=== PATIENT | male | born 1965 | race Caucasian/White ===

== ENCOUNTER → 2023-06-22 08:22 | Outpatient (REF) | payer OTHER, SELFPAY | LOC: RAD 08:22 | PROVIDERS: ATTENDING PHYSICIAN Nurse Practitioner | DX: R13.19 Other dysphagia (principal) | CPT/HCPCS: 74230; 92611 ==

== ENCOUNTER → 2023-07-08 07:15 | Outpatient (REF) | payer OTHER, SELFPAY | LOC: MRI 07:15 | PROVIDERS: ATTENDING PHYSICIAN Specialist; FAMILY PHYSICIAN Family Medicine; REFERRING PHYSICIAN Radiology Diagnostic Radiology | DX: R41.840 Attention and concentration deficit (principal) | CPT/HCPCS: 70030; 70551 ==

== ENCOUNTER 2024-01-17 02:59 | Emergency (ER) | payer OTHER, SELFPAY ==
[2024-01-17] VITALS (13 sets, daily range): BP systolic 134–178; BP diastolic 101–130
--- NOTE | 2024-01-17 03:49 | ED.GENMED ---
History of Present Illness
General
Chief Complaint: Blood Pressure Problem
Source: patient
Exam Limitations: none
Time Seen by Provider: 01/17/24 03:15
Nursing documentation reviewed up to this point in time: agreed with
History of Present Illness
History of Present Illness:
This is a 58-year-old gentleman who has longstanding history of 'borderline hypertension' and states his blood pressure generally runs in the 130s occasionally 140s. He attempts to control his blood pressure with diet and exercise.
He also has history of hyperlipidemia, prediabetes as well as history of ADHD and has been trialed on several different 'non-amphetamine' ADHD medications thus far without improvement in his inattention issues.
A month ago he was started on Qelbree, no improvement in attention deficit issues but he has had elevated blood pressure readings. 2 weeks ago while at the [facility] in anticipation to give blood he was turned away due to elevated blood pressure of
148/110. He has been monitoring his blood pressure since then and has remained elevated despite self titrating his Qelbree down but has not discontinued Qelbree until today.
He awoke tonight with complaints of generalized headache primarily at the top of his head and took 2 Advil prior to arrival. No improvement in headache but now notes mild nausea. He denies chest pain, no shortness of breath, no dizziness nor
lightheadedness, no palpitations, no neck nor back pain. No vision difficulty. He denies nasal congestion, no sore throat. He did have COVID-19 URI earlier this month.
He did have a few hard seltzer drinks yesterday while he was out in the sun at [facility]. He denies significant nor frequent alcohol use.
Past History
Past History
ED Past Medical History: HTN, Hypercholesterolemia, NIDDM, Other (ADHD) and Other (Kidney stones)
ED Past Surgical History: Urological (Vasectomy)
Social History
Tobacco: Non-smoker
Alcohol: None
Drug: None
Personal:
Living: with family
Employment: Employed
Family History
Family History: Hypertension
Phy Exam
Physical Exam
Physical Exam:
GENERAL: 58-year-old gentleman appears his stated age, awake and alert, very minimally anxious but appropriate, easily communicative. is accompanying.
EYE: pupils equal and reactive. anicteric
NECK: Supple, nontender, no meningismus, no significant adenopathy.
ENT: posterior pharynx is clear, oral mucosa is moist. TM clear b/l, nares have mildly boggy pale blue turbinates.
CARDIAC: Regular rate and rhythm. no murmur.
LUNGS: Clear breath sounds bilaterally, no acute respiratory distress, no wheezes/rales/rhonchi
ABDOMEN: Soft, nondistended, without focal tenderness, no r/g, no cvat. normoactive BS.
NEUROLOGICAL: Alert and oriented x3, no focal neuro deficits. Gait is davis and steady.
SKIN: Warm and dry, normal color, skin intact. No rash.
MUSCULOSKELETAL: No C/C/E. peripheral pulses are full and equal b/l. No palpable tenderness.
PSYCH: Normal and appropriate interaction.
Course
Orders/Labs/Results
Orders:
Orders
01/17/24 03:40
CMP [Comprehensive Metabolic Panel] Urgent
Complete Blood Count/With Diff Urgent
01/17/24 03:48
Electrocardiogram (*1) Urgent
Reason for Study: Hypertension, Benign
CT Head W/o Iv Contrast Urgent
Comment:
Reason For Exam: acute headache, HTN
EKG- Treatment ONCE
01/17/24 03:49
Metoprolol [Lopressor] 5 mg IV NOW STA
01/17/24 05:00
Metoprolol [Lopressor] 5 mg .ROUTE .STK-MED ONE
01/17/24 05:01
Metoprolol [Lopressor] 5 mg IV NOW STA
01/17/24 05:02
0.9% Sodium Chloride 500 ml [Nss] 500 ml IV BOLUS
01/17/24 05:35
0.9% Sodium Chloride 500 ml [Nss] 500 ml IV BOLUS
Ketorolac [Toradol] 30 mg IV NOW STA
01/17/24 05:36
Ketorolac [Toradol] 30 mg .ROUTE .STK-MED ONE
01/17/24 05:39
0.9% Sodium Chloride 500 ml [Nss] 500 ml IV BOLUS
01/17/24 05:44
0.9% Sodium Chloride 500 ml [Nss] 500 ml IV BOLUS
Abnormal Lab Results
01/17/24
03:40
WBC 3.2 L 10^3/uL
(4.8-10.8)
RBC 4.20 L 10^6/uL
(4.70-6.10)
Hgb 12.6 L g/dL
(13.0-18.0)
Hct 35.5 L %
(39.0-52.0)
Plt Count 126 L 10^3/uL
(130-400)
MPV 11.1 H fL
(7.4-10.4)
Monocytes % 9.4 H %
(1.7-9.3)
BUN 24 H mg/dl
(9-20)
Glucose 125 H mg/dl
(70-99)
Total Protein 6.0 L g/dl
(6.3-8.2)
01/17/24 03:40
01/17/24 03:40
Vital Signs
Initial and Last Documented VS:
Initial Vital Signs
Temp Pulse Resp BP Pulse Ox
97.8 F 90 22 178/114 98
01/17/24 03:01 01/17/24 03:01 01/17/24 03:01 01/17/24 03:01 01/17/24 03:01
Last Documented Vital Signs
Temp Pulse Resp BP Pulse Ox
97.8 F 80 22 158/103 98
01/17/24 03:01 01/17/24 05:02 01/17/24 03:01 01/17/24 06:00 01/17/24 06:00
MDM/Problems Addressed
Differential Diagnosis Includes:
History of borderline hypertension presents with accelerated hypertension associated with headache.
Hypertension has been an ongoing issue at least over the past 2 weeks or more.
Concern for exacerbation of essential hypertension versus adverse medication reaction related to Qelbee versus intracranial hemorrhage.
Concern for end organ damage thus will check labs, will check CT of the head, EKG.
No associated symptoms with headache, no red flags in history nor exam. Headache not maximal in intensity at onset, no nuchal rigidity, no focal neuro-deficits, nothing to suggest subarachnoid hemorrhage.
Will give an IV dose of Lopressor for hypertension.
Chronic conditions affecting care: DM (Borderline diabetes), HTN and Psychiatric illness (ADD)
Acute Exacerbation and/or Progression of Chronic Illness: HTN
*Radiology
Radiology exam reviewed: radiology read reviewed
*Pulse Oximetry
Patient hypoxic: no
*EKG
Interpreted by ED Provider?: Yes
Interpretation: normal
Comparison EKG: no comparison EKG present
Rate: normal
Rhythm: sinus
[place]: normal axis
Interval: normal interval
QRS Pattern: normal QRS
Ischemia: no ischemia
*Pediatrician Managing Partner Interpretation
Rate: normal
Interpretation: normal
Rhythm: sinus
*Critical Care Note
Total Time (30-74mins, 75-104mins- exclusive of procedures): Not Applicable
Update Note
Update Note:
01/17/2024 0539 AM
Blood pressure improving.
CT of the head is unremarkable.
Labs reveal very mild pancytopenia, unremarkable chemistry save for minimally elevated BUN of 24.
Pancytopenia may be related to recent viral illness/recent COVID URI.
Patient reports moderate improvement in headache but not completely resolved. Continues to appear well.
Mild dehydration I suspect is related to alcohol consumption and exposure to outdoor el[place] weather yesterday while at a gathering at his neighbors. Will continue IV fluids and trial an IV dose of Toradol for headache and continue to observe.
He has been given an additional dose of metoprolol as well.
I do suspect the patient has hypertension and we discussed initiating an antihypertensive medication upon discharge versus prompt follow-up with PCP for recheck and discuss hypertension management with PCP.
He elects to follow-up with his PCP for BP recheck and to discuss medication. Recommend follow-up with PCP for recheck of mild pancytopenia as well.
Recommend he stay well-hydrated on a daily basis, avoid further alcoholic beverages.
Recommend he continue to monitor his blood pressure but only once per day, record results with prompt follow-up with PCP for recheck.
ED Attending Note
-
Portions of this chart may have been created with voice recognition software.� Occasional wrong word or��sound alike� substitutions may have occurred due to the inherent limitations of voice recognition software.
Discharge Plan
Departure
Patient Disposition: Home (Routine Discharge)
Date of Disposition: 01/17/24
Time of Disposition: 06:14
Patient with high blood pressure during this ER visit?: Yes
Discharge Problem:
Accelerated essential hypertension, Acute tension-type headache, Pancytopenia
Instructions: High Blood Pressure (DC), Tension Headache (DC)
Prescriptions:
No Action
ibuprofen 600 MG tablet
600 mg PO Q6H Qty: 20 0RF
atorvastatin [Lipitor] 40 mg Tablet
40 mg PO HS
famotidine 20 mg Tablet
20 mg PO HS
cholecalciferol (vitamin D3) [Vitamin D3] 10 mcg (400 unit) Capsule
1 unit PO DAILY
Fish Oil Capsule
2 cap PO DAILY
aspirin 81 mg Capsule
81 mg PO DAILY
multivitamin
1 tab PO DAILY
Referrals:
UNKNOWN - PT DOES,NOT KNOW [Unknown Provider] -
Interventions
Interventions:
*Risk Screen - Suicide Last Done: 01/17/24 03:01
*General Assessment Last Done: 01/17/24 03:15
*Neglect/Abuse Screening Last Done: 01/17/24 03:01
*ED COVID-19 Vaccine History Last Done: 01/17/24 03:15
ED- Cardiac Assessment Last Done: 01/17/24 03:15
ED- Neurological Assessment Last Done: 01/17/24 03:15
ED- Pulmonary Assessment Last Done: 01/17/24 03:15
Discharge Date and Time
Print Language: ARGENTINE
[2024-01-17] MEDS: LOPRESSOR 5 MG IV ×2 (03:52→05:02)
[2024-01-17 03:55] LABS: Hematocrit 35.5 % (39.0-52.0); Hemoglobin 12.6 g/dL (13.0-18.0); Mean Corp Hgb Conc. 35.5 g/dL (33.0-37.0); Mean Corpuscular Volume 84.5 fL (80.0-94.0); Mean Platelet Volume 11.1 fL (7.4-10.4); Platelet Count 126 10^3/uL (130-400); Red Cell Dist. Width 12.4 % (11.5-14.5); White Blood Cell Count 3.2 10^3/uL (4.8-10.8)
[2024-01-17 03:56] LABS: % Basophils 0.6 % (0-2); % Eosinophils 5.7 % (0-6); % Lymphocytes 39.6 % (20.5-51.1); % Monocytes 9.4 % (1.7-9.3); % Neutrophils 44.7 % (42.2-75.2); Absolute Eosinophils 0.2 10^3/uL (0-0.7); Absolute Lymphocytes 1.3 10^3/uL (1.2-3.4); Absolute Monocytes 0.3 10^3/uL (0.1-0.6); Absolute Neutrophils 1.4 10^3/uL (1.4-6.5); Nucleated Red Blood Cells % 0 % (-)
[2024-01-17 04:26] LABS: ALT (SGPT) 24 U/L (0-50); AST (SGOT) 31 U/L (17-59); Alkaline Phosphatase 55 U/L (38-126); Blood Urea Nitrogen 24 mg/dl (9-20); Calcium 9.1 mg/dl (8.4-10.2); Carbon Dioxide 28 mmol/L (22-30); Chloride 105 mmol/L (98-107); Glucose 125 mg/dl (70-99); Potassium 4.3 mmol/L (3.5-5.1); Sodium 144 mmol/L (135-145); Total Bilirubin 0.4 mg/dl (0.2-1.3); eGFR > 60.00
[2024-01-17] MEDS: NSS 500 IV ×3 (05:04→05:44)
[2024-01-17] MEDS: TORADOL 30 MG IV (05:38)
== END 2024-01-17 07:01 | disposition home or self-care (01) ==
LOC: EMR 02:59
PROVIDERS: EMERGENCY PHYSICIAN Emergency Medicine; FAMILY PHYSICIAN Nurse Practitioner
DX: I10 Essential (primary) hypertension (principal); R11.0 Nausea; G44.209 Tension-type headache, unspecified, not intractable; D61.818 Other pancytopenia; R73.03 Prediabetes; E78.00 Pure hypercholesterolemia, unspecified; F90.9 Attention-deficit hyperactivity disorder, unspecified type; Z87.442 Personal history of urinary calculi; Z79.82 Long term (current) use of aspirin
CPT/HCPCS: 99284; 96374; 96375; 96361; 96376; 70450; 80053; 85025; 93005

== ENCOUNTER → 2024-03-03 11:12 | Outpatient (REF) | payer OTHER, SELFPAY | LOC: DHSLP 11:12 | PROVIDERS: ATTENDING PHYSICIAN Physician Assistant; FAMILY PHYSICIAN Nurse Practitioner | DX: G47.33 Obstructive sleep apnea (adult) (pediatric) (principal) | CPT/HCPCS: 95800 ==

== ENCOUNTER → 2024-04-10 08:45 | Outpatient (REF) | payer OTHER, SELFPAY | LOC: RAD 08:45 | PROVIDERS: ATTENDING PHYSICIAN Internal Medicine; FAMILY PHYSICIAN Nurse Practitioner | DX: R93.3 Abnormal findings on diagnostic imaging of other parts of digestive tract (principal); R13.19 Other dysphagia | CPT/HCPCS: 74246 ==

== ENCOUNTER → 2024-04-21 06:32 | Day surgery (SDC) | payer OTHER, SELFPAY | LOC: GI 06:32 | PROVIDERS: ATTENDING PHYSICIAN Internal Medicine | DX: K22.2 Esophageal obstruction (principal); K22.89 Other specified disease of esophagus; K31.7 Polyp of stomach and duodenum; K31.89 Other diseases of stomach and duodenum; R13.10 Dysphagia, unspecified; R93.3 Abnormal findings on diagnostic imaging of other parts of digestive tract | CPT/HCPCS: 43239; 88305; 88342 ==

== ENCOUNTER 2024-06-30 06:23 | Day surgery (SDC) | payer OTHER, SELFPAY | END 2024-06-30 09:30 | disposition home or self-care (01) | LOC: GI 06:23 | PROVIDERS: ATTENDING PHYSICIAN Internal Medicine | DX: D12.3 Benign neoplasm of transverse colon (principal); K63.5 Polyp of colon; K57.30 Diverticulosis of large intestine without perforation or abscess without bleeding; K64.8 Other hemorrhoids; Z83.719 Family history of colon polyps, unspecified | CPT/HCPCS: 45385; 45380; 88305 ==